=== PATIENT | male | born 2000 | race Asian ===

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

== ENCOUNTER 2021-01-27 22:18 | Emergency (ER) | payer BC ==
[~2021-01-27] VITALS: Ht 172.7 cm; Wt 73.0 kg
[2021-01-27 22:37] VITALS: BP 114/64
[2021-01-28] MEDS ORDERED: ONDANSETRON 4MG ODT PO ONE
[2021-01-28] MEDS ORDERED: HYDROCODONE/ACETAMINOPHEN 5/325MG TABLET PO ONE
[2021-01-28] MEDS ORDERED: IBUP-2029 MT (01:13)
== END 2021-01-28 02:36 | disposition home or self-care (01) ==
LOC: ER 22:18
DX: S93.492A Sprain of other ligament of left ankle, initial encounter (principal); X50.1XXA Overexertion from prolonged static or awkward postures, initial encounter; Y93.67 Activity, basketball; Y92.838 Other recreation area as the place of occurrence of the external cause
CPT/HCPCS: 73610; 99283; Q0162

== ENCOUNTER → 2021-05-17 | Outpatient (CLI) | payer BC ==
[~2021-05-17] MED LIST changes: +IBUP-2029 MT
[2021-05-17 12:32] LABS: EOSINOPHILS % 5.6 % (0.0-5.0); HEMATOCRIT. 43.6 % (42.0-52.0); HEMOGLOBIN. 14.6 g/dL (14.0-18.0); LYMPHOCYTES % 40.5 % (20.0-50.0); MEAN CORPUSCULAR HEMOGLOBIN 28.2 pg (28.0-32.0); MEAN CORPUSCULAR VOLUME 84.3 fL (80.0-94.0); MEAN PLATELET VOLUME 8.4 fl (7.4-10.4); MONOCYTES % 8.1 % (2.0-8.0); NEUTROPHILS % 44.8 % (40.0-76.0); PLATELET 203 x1000/uL (130-400); RED BLOOD CELL COUNT 5.17 mill/uL (4.7-6.1); RED CELL DISTRIBUTION WIDTH 13.6 % (11.6-14.6)
[2021-05-17 13:06] LABS: CHLORIDE 108 mEq/L (98-107)
[2021-05-17 13:18] LABS: HDL CHOLESTEROL 51 mg/dL (40-59)
[2021-05-17 13:19] LABS: T4 FREE 0.91 ng/dL (0.76-1.46)
[2021-05-17 13:21] LABS: LDL CHOLESTEROL 64 mg/dL (5-100)
[2021-05-17 19:17] LABS: FOLIC ACID (FOLATE) SERUM 18.1 ng/mL (>5.38)
[2021-05-18 09:06] LABS: ANTI-NUCLEAR ANTIBODIES DIRECT Negative (Negative); RF PROFILE < 10.0 IU/mL (<14.0)
[2021-05-21 09:11] LABS: CCP IgG/IgA PROFILE 9 units (0-19)
[2021-05-21 10:06] LABS: VITAMIN D 25-OH 34.1 ng/mL (30.0-100.0)
[2021-05-24 04:11] LABS: METHYLMALONIC ACID 123 nmol/L (0-378)
== END | disposition home or self-care (01) ==
LOC: LAB 11:19
PROVIDERS: ATTEND Internal Medicine Endocrinology, Diabetes & Metabolism
DX: S93.412A Sprain of calcaneofibular ligament of left ankle, initial encounter (principal); R93.7 Abnormal findings on diagnostic imaging of other parts of musculoskeletal system; M25.722 Osteophyte, left elbow; M25.572 Pain in left ankle and joints of left foot; M25.472 Effusion, left ankle; X58.XXXA Exposure to other specified factors, initial encounter; Y93.89 Activity, other specified; Y92.89 Other specified places as the place of occurrence of the external cause; Y99.8 Other external cause status
CPT/HCPCS: 36415; 73721; 80053; 80061; 82306; 82607; 82746; 83036; 83921; 84439; 84443; 85025; 85651; 86038; 86200; 86431

== ENCOUNTER → 2021-10-08 | Outpatient (CLI) | payer BC | END | disposition home or self-care (01) | LOC: RAD 11:32 | PROVIDERS: ATTEND Internal Medicine Endocrinology, Diabetes & Metabolism | DX: R05.9 Cough, unspecified (principal) | CPT/HCPCS: 71046 ==

== ENCOUNTER → 2022-03-05 | Outpatient (CLI) | payer BC ==
[2022-03-05 08:25] LABS: BASOPHILS % 0.7 % (0.0-2.0); EOSINOPHILS % 5.9 % (0.0-5.0); HEMATOCRIT. 47.3 % (42.0-52.0); HEMOGLOBIN. 16.1 g/dL (14.0-18.0); LYMPHOCYTES % 29.9 % (20.0-50.0); MEAN CORPUSCULAR HEMOGLOBIN 29.3 pg (28.0-32.0); MEAN CORPUSCULAR VOLUME 86.1 fL (80.0-94.0); MEAN PLATELET VOLUME 8.5 fl (7.4-10.4); MONOCYTES % 7.5 % (2.0-8.0); PLATELET 197 x1000/uL (130-400); RED CELL DISTRIBUTION WIDTH 12.8 % (11.6-14.6)
[2022-03-05 08:31] LABS: CHLORIDE 103 mEq/L (98-107)
[2022-03-05 12:11] LABS: HEPATITIS B SURFACE ANTIGEN NEGATIVE
[2022-03-05 14:43] LABS: VITAMIN B12 SERUM 560 pg/mL (211-911)
[2022-03-06 09:11] LABS: ANTI-NUCLEAR ANTIBODIES DIRECT Negative (Negative); RF PROFILE < 10.0 IU/mL (<14.0)
== END | disposition home or self-care (01) ==
LOC: LAB 07:22
PROVIDERS: ATTEND Internal Medicine Endocrinology, Diabetes & Metabolism
DX: R94.5 Abnormal results of liver function studies (principal); M54.9 Dorsalgia, unspecified
CPT/HCPCS: 36415; 80053; 82607; 82746; 83921; 85025; 85651; 86038; 86200; 86431; 86705; 86709; 86803; 87340

== ENCOUNTER → 2022-06-11 | Outpatient (CLI) | payer BC | END | disposition home or self-care (01) | LOC: RAD 12:04 | DX: M54.50 Low back pain, unspecified (principal) | CPT/HCPCS: 72100 ==

== ENCOUNTER → 2023-03-03 | Outpatient (CLI) | payer BC ==
[2023-03-03 14:39] LABS: BASOPHILS % 0.4 % (0.0-2.0); EOSINOPHILS % 8.4 % (0.0-5.0); HEMATOCRIT. 47.6 % (42.0-52.0); HEMOGLOBIN. 16.2 g/dL (14.0-18.0); LYMPHOCYTES % 29.1 % (20.0-50.0); MEAN CORPUSCULAR HEMOGLOBIN 29.6 pg (28.0-32.0); MEAN PLATELET VOLUME 8.4 fl (7.4-10.4); MONOCYTES % 6.9 % (2.0-8.0); NEUTROPHILS % 55.2 % (40.0-76.0); PLATELET 205 x1000/uL (130-400); RED BLOOD CELL COUNT 5.47 mill/uL (4.7-6.1); RED CELL DISTRIBUTION WIDTH 12.9 % (11.6-14.6); WHITE BLOOD COUNT 11.3 x1000/uL (4.5-11.0)
[2023-03-03 15:28] LABS: CLARITY URINE CLEAR (CLEAR); COLOR URINE YELLOW (YELLOW)
[2023-03-03 15:29] LABS: GLUCOSE URINE NEGATIVE (NEGATIVE); KETONES URINE NEGATIVE (NEGATIVE); LEUKOCYTE ESTERASE URINE NEGATIVE (NEGATIVE); NITRITE URINE NEGATIVE (NEGATIVE); OCCULT BLOOD URINE NEGATIVE (NEGATIVE); PROTEIN URINE NEGATIVE (NEGATIVE); UROBILINOGEN URINE 0.2 E.U./dL (0.2-1.0)
[2023-03-03 15:36] LABS: ALANINE AMINOTRANSFERASE 22 IU/L (10-49); ALBUMIN 4.1 g/dL (3.2-4.8); ASPARTATE AMINOTRANSFERASE 27 IU/L (<34); BILIRUBIN TOTAL 1.2 mg/dL (0.1-1.0); CALCIUM 9.2 mg/dL (8.7-10.4); CARBON DIOXIDE 31 mEq/L (21-32); CHLORIDE 104 mEq/L (98-107); CHOLESTEROL 133 mg/dL (<200); CREATININE 0.9 mg/dL (0.6-1.3); GLUCOSE 68 mg/dL (70-105); HDL CHOLESTEROL 43 mg/dL (>55); LDL CHOLESTEROL 73 mg/dL (5-100); POTASSIUM 3.5 mEq/L (3.5-5.1); PROTEIN TOTAL 7.5 g/dL (6.0-8.3); SODIUM 140 mEq/L (136-145); T4 FREE 1.26 ng/dL (0.89-1.76); THYROID STIMULATING HORMONE 1.86 uIU/mL (0.55-4.78); TRIGLYCERIDE 98 mg/dL (0-150); UREA NITROGEN BLOOD 13 mg/dL (9-23)
[2023-03-03 15:42] LABS: *AMPHETAMINES SCREEN URINE NEGATIVE (NEGATIVE); *BARBITURATES SCREEN URINE NEGATIVE (NEGATIVE); *BENZODIAZEPINES SCREEN URINE NEGATIVE (NEGATIVE); *COCAINE SCREEN URINE NEGATIVE (NEGATIVE); CANNABINOID URINE SCREEN NEGATIVE (NEGATIVE); ECSTASY MDMA SCREEN URINE NEGATIVE (NEGATIVE); METHADONE URINE SCREEN Neg (NEGATIVE); OPIATES URINE SCREEN NEGATIVE (NEGATIVE); PHENCYCLIDINE URINE SCREEN NEGATIVE (NEGATIVE)
[2023-03-05 10:09] LABS: QFT MITOGEN VALUE 6.41 IU/mL (.); QFT TB GOLD PLUS Negative (Negative); QFT TB2 AG VALUE 0.31 IU/mL (.)
== END | disposition home or self-care (01) ==
LOC: LAB 09:48
PROVIDERS: ATTEND Internal Medicine Endocrinology, Diabetes & Metabolism
DX: R73.9 Hyperglycemia, unspecified (principal); R05.9 Cough, unspecified
CPT/HCPCS: 36415; 71046; 80053; 80061; 80305; 81003; 83036; 84439; 84443; 85025; 86480

== ENCOUNTER → 2023-03-19 | Outpatient (CLI) | payer BC | END | disposition home or self-care (01) | LOC: MRI 08:38 | PROVIDERS: ATTEND Internal Medicine Endocrinology, Diabetes & Metabolism | DX: S86.812A Strain of other muscle(s) and tendon(s) at lower leg level, left leg, initial encounter (principal); S83.512A Sprain of anterior cruciate ligament of left knee, initial encounter; R60.0 Localized edema; M25.772 Osteophyte, left ankle; X58.XXXA Exposure to other specified factors, initial encounter; Y93.89 Activity, other specified; Y92.89 Other specified places as the place of occurrence of the external cause; Y99.8 Other external cause status | CPT/HCPCS: 73560; 73610; 73650; 73721 ==

== ENCOUNTER → 2024-01-11 | Outpatient (CLI) | payer BC ==
[2024-01-11 17:29] LABS: BASOPHILS % 0.7 % (0.0-2.0); EOSINOPHILS % 3.5 % (0.0-5.0); HEMATOCRIT. 46.9 % (42.0-52.0); HEMOGLOBIN. 15.9 g/dL (14.0-18.0); MEAN CORPUSCULAR HEMOGLOBIN 29.9 pg (28.0-32.0); MEAN CORPUSCULAR HGB CONC 33.8 g/dL (31.0-37.0); MEAN CORPUSCULAR VOLUME 88.3 fL (80.0-94.0); MEAN PLATELET VOLUME 8.4 fl (7.4-10.4); MONOCYTES % 5.8 % (2.0-8.0); PLATELET 197 x1000/uL (130-400); RED BLOOD CELL COUNT 5.31 mill/uL (4.7-6.1); RED CELL DISTRIBUTION WIDTH 12.5 % (11.6-14.6); WHITE BLOOD COUNT 8.3 x1000/uL (4.5-11.0)
[2024-01-11 17:29] LABS: CLARITY URINE CLEAR (CLEAR); COLOR URINE YELLOW (YELLOW); GLUCOSE URINE NEGATIVE (NEGATIVE); KETONES URINE NEGATIVE (NEGATIVE); LEUKOCYTE ESTERASE URINE NEGATIVE (NEGATIVE); NITRITE URINE NEGATIVE (NEGATIVE); OCCULT BLOOD URINE NEGATIVE (NEGATIVE); PROTEIN URINE NEGATIVE (NEGATIVE); SPECIFIC GRAVITY URINE 1.011 (1.005-1.030); UROBILINOGEN URINE 0.2 E.U./dL (0.2-1.0)
[2024-01-11 17:48] LABS: CHLORIDE 107 mEq/L (98-107); POTASSIUM 3.4 mEq/L (3.5-5.1); SODIUM 141 mEq/L (136-145)
[2024-01-11 17:49] LABS: CARBON DIOXIDE 32 mEq/L (21-32)
[2024-01-11 17:50] LABS: CALCIUM 9.3 mg/dL (8.7-10.4)
[2024-01-11 17:53] LABS: CORTISOL 11.4 ucg/dL
[2024-01-11 17:54] LABS: GLUCOSE 98 mg/dL (70-105)
[2024-01-11 17:55] LABS: LDL CHOLESTEROL 65 mg/dL (5-100); TRIGLYCERIDE 102 mg/dL (0-150); UREA NITROGEN BLOOD 11 mg/dL (9-23)
[2024-01-11 17:56] LABS: ALANINE AMINOTRANSFERASE 21 IU/L (10-49); ALBUMIN 4.2 g/dL (3.2-4.8); ASPARTATE AMINOTRANSFERASE 35 IU/L (<34); CHOLESTEROL 121 mg/dL (<200); HDL CHOLESTEROL 44 mg/dL (>55)
[2024-01-11 17:57] LABS: BILIRUBIN TOTAL 2.1 mg/dL (0.1-1.0); PROTEIN TOTAL 7.1 g/dL (6.0-8.3); T4 FREE 1.38 ng/dL (0.89-1.76); THYROID STIMULATING HORMONE 0.85 uIU/mL (0.55-4.78)
[2024-01-11 17:58] LABS: VITAMIN B12 SERUM 192 pg/mL (211-911)
[2024-01-11 18:39] LABS: ERYTHROCYTE SEDIMENTATION RATE 2 mm/hr (0-15)
[2024-01-13 09:11] LABS: RF PROFILE < 10.0 IU/mL (<14.0)
[2024-01-13 15:10] LABS: ANTI-NUCLEAR ANTIBODIES DIRECT Negative (Negative); THYROID PEROXIDASE ANTIBODY 16 IU/mL (0-34)
== END | disposition home or self-care (01) ==
LOC: MRI 15:16
PROVIDERS: ATTEND Internal Medicine Endocrinology, Diabetes & Metabolism
DX: S83.512A Sprain of anterior cruciate ligament of left knee, initial encounter (principal); R60.0 Localized edema; E04.9 Nontoxic goiter, unspecified; M25.562 Pain in left knee; I95.9 Hypotension, unspecified; X58.XXXA Exposure to other specified factors, initial encounter; Y93.89 Activity, other specified; Y92.89 Other specified places as the place of occurrence of the external cause; Y99.8 Other external cause status
CPT/HCPCS: 36415; 73721; 76536; 80053; 80061; 81003; 82088; 82533; 82607; 82746; 83036; 83921; 84432; 84439; 84443; 85025; 85651; 86038; 86200; 86376; 86431

== ENCOUNTER → 2024-01-21 | Outpatient (CLI) | payer BC | END | disposition home or self-care (01) | LOC: US 07:47 | PROVIDERS: ATTEND Internal Medicine Endocrinology, Diabetes & Metabolism | DX: K82.4 Cholesterolosis of gallbladder (principal); E80.7 Disorder of bilirubin metabolism, unspecified; R17 Unspecified jaundice | CPT/HCPCS: 76700 ==